=== PATIENT | female | born 1970 | race Caucasian/White ===

== ENCOUNTER → 2022-04-20 | Outpatient (CLI) | payer OTHER | END | disposition home or self-care (01) | LOC: RAD 14:24 | PROVIDERS: ATTEND Orthopaedic Surgery | DX: M25.561 Pain in right knee (principal); M25.562 Pain in left knee ==

== ENCOUNTER 2022-12-29 13:56 | Outpatient (CLI) | payer OTHER | END 2022-12-29 14:02 | disposition home or self-care (01) | LOC: RAD 13:56 | PROVIDERS: ATTEND Orthopaedic Surgery | DX: M25.562 Pain in left knee (principal) ==

== ENCOUNTER 2023-10-04 15:00 | Outpatient (CLI) | payer OTHER | END 2023-10-04 15:11 | disposition home or self-care (01) | LOC: RAD 15:00 | PROVIDERS: ATTEND Orthopaedic Surgery | DX: M25.511 Pain in right shoulder (principal); M25.521 Pain in right elbow ==